=== PATIENT | male | born 1940 | race Two or more races ===

== ENCOUNTER 2018-09-12 08:11 | Outpatient (CLI) | payer MEDICARE, OTHER ==
--- NOTE | 2018-09-13 08:48 | Ultrasound Report ---
Reason: LIPOMAS,MULTIPLE Procedure Date: 09/12/2018 Accession Number: [id number] / [id number] Procedure: US - Abdomen Limited CPT Code: FULL RESULT: EXAM: ABDOMEN ULTRASOUND LIMITED, RUQ EXAM DATE: 09/12/2018 08:40 AM. CLINICAL HISTORY: Focal lump and swelling. COMPARISON: None. TECHNIQUE: Real-time scanning was performed with static images obtained. FINDINGS: Ultrasound imaging of the right lower quadrant region demonstrates three adjacent heterogeneous hypoechoic nodules in the subcutaneous fat likely corresponding to injection granulomas/fat necrosis measuring 1.4 cm, 1.6 cm, and 1.4 cm. Ultrasound imaging of the left lower quadrant region demonstrates a lobulated nodule isoechoic to surrounding fat measuring 3.7 cm, possible lipoma. Additional nodules demonstrating heterogeneous hypoechoic appearance in the subcutaneous fat corresponding to injection granulomas/fat necrosis are also seen measuring 1.3 cm, 1.6 cm, and 1.3 cm. IMPRESSION: 1. Multiple subcutaneous nodules seen in the lower abdominal quadrants consistent with injection granulomas/fat necrosis. 2. Single 3.7 cm nodule in the left lower quadrant region could represent small lipoma. [facility]
--- NOTE | 2018-09-13 10:34 | Ultrasound Report ---
Reason: ANEURYSYM OF INFRARENAL ABDOMINAL AORTA Procedure Date: 09/12/2018 Accession Number: [id number] / [id number] Procedure: US - Retroperitoneal Limited CPT Code: FULL RESULT: EXAM: AORTIC DOPPLER ULTRASOUND EXAM DATE: 09/12/2018 08:20 AM. CLINICAL HISTORY: Aneurysm of infrarenal abdominal aorta. COMPARISON: Abdomen/pelvis 06/04/2015. TECHNIQUE: Real-time sonographic imaging of retroperitoneal vascular structures, including color-flow, Doppler flow and spectral analysis was performed by the human resources file clerk. Multiple outside medical sales representative static images were saved for review. FINDINGS: Aorta: The abdominal aorta was adequately visualized. There is mild aneurysmal dilatation of the infrarenal/distal portion measuring up to 3.3 cm, similar to recent CT 06/04/2015. There is superimposed mild diffuse atherosclerotic plaque formation seen. Proximal aorta: 2.9 cm. Mid aorta: 2.4 x 2.6 cm. Distal aorta: 3.3 x 2.9 cm. Inferior Vena Cava: Normal. Iliac Vessels: The visualized proximal common iliac arteries are normal in caliber. Right: 1.5 x 1.4 cm. Left: 1.5 x 1.4 cm. Other: None. IMPRESSION: Stable mild infrarenal abdominal aortic aneurysm up to 3.3 cm similar, to 06/04/2015 CT. [facility]
== END 2018-09-12 08:12 | disposition home or self-care (01) ==
LOC: DI 08:11
PROVIDERS: ATTEND Physician Assistant
DX: I71.4 Abdominal aortic aneurysm, without rupture (principal); D17.5 Benign lipomatous neoplasm of intra-abdominal organs
CPT/HCPCS: 76705; 76775

== ENCOUNTER 2019-06-02 08:00 | Outpatient (CLI) | payer MEDICARE, OTHER ==
[2019-06-02 13:02] LABS: BASOPHILS # (AUTO) 0.1 10^3/uL (0.0-0.1); BASOPHILS % (AUTO) 1.3 %; EOSINOPHILS # (AUTO) 0.2 10^3/uL (0.0-0.7); EOSINOPHILS % (AUTO) 3.2 %; HGB - HEMOGLOBIN 13.9 g/dL (14.0-18.0); LYMPHOCYTES # (AUTO) 1.3 10^3/uL (1.5-3.5); LYMPHOCYTES % (AUTO) 18.3 %; MEAN CORPUSCULAR HEMOGLOBIN 31.1 pg (27.0-31.0); MEAN CORPUSCULAR HGB CONC 32.9 g/dL (32.0-36.0); MEAN CORPUSCULAR VOLUME 94.4 fL (80.0-94.0); MEAN PLATELET VOLUME 10.3 fL (7.4-11.4); MONOCYTES # (AUTO) 0.5 10^3/uL (0.0-1.0); MONOCYTES % (AUTO) 6.4 %; NEUTROPHILS % (AUTO) 70.4 %; PLT - PLATELET COUNT 335 10^3/uL (130-450); RED BLOOD COUNT 4.47 10^6/uL (4.70-6.10); RED CELL DISTRIBUTION WIDTH 13.3 % (12.0-15.0); WHITE BLOOD COUNT 7.2 x10^3/uL (4.8-10.8)
[2019-06-02 13:17] LABS: ALBUMIN 4.3 g/dL (3.2-5.5); ALBUMIN/GLOBULIN RATIO 1.4 (1.0-2.2); BILIRUBIN,TOTAL 0.7 mg/dL (0.2-1.0); CALCIUM 9.1 mg/dL (8.5-10.3); CREATININE 0.9 mg/dL (0.6-1.2); TOTAL PROTEIN 7.3 g/dL (6.7-8.2)
[2019-06-02 13:49] LABS: HEMOGLOBIN A1C 0.74 g/dL
== END 2019-06-02 23:59 | disposition home or self-care (01) ==
LOC: LAB.WCP 08:00
PROVIDERS: ATTEND Physician Assistant
DX: E11.51 Type 2 diabetes mellitus with diabetic peripheral angiopathy without gangrene (principal); I10 Essential (primary) hypertension
CPT/HCPCS: 36415; 80053; 83036; 85025

== ENCOUNTER 2020-01-13 08:00 | Outpatient (CLI) | payer MEDICARE, OTHER ==
[2020-01-13 11:56] LABS: BASOPHILS # (AUTO) 0.1 10^3/uL (0.0-0.1); BASOPHILS % (AUTO) 1.2 %; EOSINOPHILS # (AUTO) 0.3 10^3/uL (0.0-0.7); EOSINOPHILS % (AUTO) 5.2 %; HGB - HEMOGLOBIN 13.8 g/dL (14.0-18.0); LYMPHOCYTES # (AUTO) 1.1 10^3/uL (1.5-3.5); LYMPHOCYTES % (AUTO) 16.7 %; MEAN CORPUSCULAR HEMOGLOBIN 31.6 pg (27.0-31.0); MEAN CORPUSCULAR HGB CONC 32.9 g/dL (32.0-36.0); MEAN CORPUSCULAR VOLUME 96.1 fL (80.0-94.0); MEAN PLATELET VOLUME 10.5 fL (7.4-11.4); MONOCYTES # (AUTO) 0.5 10^3/uL (0.0-1.0); NEUTROPHILS # (AUTO) 4.5 10^3/uL (1.5-6.6); NEUTROPHILS % (AUTO) 68.6 %; PLT - PLATELET COUNT 328 10^3/uL (130-450); RED BLOOD COUNT 4.37 10^6/uL (4.70-6.10); RED CELL DISTRIBUTION WIDTH 13.2 % (12.0-15.0); WHITE BLOOD COUNT 6.6 x10^3/uL (4.8-10.8)
[2020-01-13 12:14] LABS: ALBUMIN 4.3 g/dL (3.2-5.5); ALBUMIN/GLOBULIN RATIO 1.3 (1.0-2.2); ALKALINE PHOSPHATASE 47 IU/L (42-121); ALT ALANINE AMINOTRANSFERASE 23 IU/L (10-60); AST ASPARTATE AMINOTRANSFERASE 21 IU/L (10-42); BILIRUBIN,TOTAL 0.9 mg/dL (0.2-1.0); BUN - BLOOD UREA NITROGEN 17 mg/dL (6-20); CALCIUM 8.5 mg/dL (8.5-10.3); CARBON DIOXIDE - CO2 27 mmol/L (21-32); CHLORIDE 104 mmol/L (101-111); CHOL/HDL RATIO 2.8 (<5.0); CHOLESTEROL 142 mg/dL; CREATININE 1.1 mg/dL (0.6-1.2); GLUCOSE 119 mg/dL (70-100); HDL CHOLESTEROL 50 mg/dL; LDL CHOLESTEROL,CALCULATED 65 mg/dL; LDL/HDL RATIO 1.3 (<3.6); SODIUM 135 mmol/L (135-145); TOTAL PROTEIN 7.5 g/dL (6.7-8.2); VLDL CHOLESTEROL 27 mg/dL
[2020-01-13 13:13] LABS: HB2 TOTAL 14.3 g/dL; HEMOGLOBIN A1C 0.73 g/dL; HEMOGLOBIN A1C % 6.8 % (4.6-6.2)
== END 2020-01-13 23:59 | disposition home or self-care (01) ==
LOC: LAB.WCP 08:00
PROVIDERS: ATTEND Physician Assistant
DX: E11.59 Type 2 diabetes mellitus with other circulatory complications (principal); E78.5 Hyperlipidemia, unspecified
CPT/HCPCS: 36415; 80053; 80061; 83036; 83721; 85025

== ENCOUNTER 2020-10-18 11:47 | Outpatient (CLI) | payer MEDICARE, OTHER ==
--- NOTE | 2020-10-18 12:52 | XRAY Report ---
PROCEDURE: Lumbar Spine 2 View INDICATIONS: LUMBAR BACK PAIN TECHNIQUE: 2 views of the lumbar spine were acquired. COMPARISON: CT abdomen and pelvis 06/04/2015 reviewed. FINDINGS: Bones: 5 [id number] vertebrae are present. There is normal bony alignment. No vertebral body compression fractures. No suspicious bony lesions. Mild to moderate degenerative disc disease is pr esent at L4-5 and L5-S1. This is most prominent at the lumbosacral junction where facet osteoarthriti s also is prominent. Soft tissues: Overlying bowel gas pattern is normal. Calcifications right upper quadrant represent g allstones, better seen by prior CT scanning. Follow-up ultrasound may be warranted. 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 Spinal and foraminal stenosis likely is present at each of these 2 le vels. Right upper quadrant gallbladder calcifications previously also documented by CT scanning. Reviewed by: Fercho Vizcaino MD on 10/18/2020 12:50 PM PST Approved by: Fercho Vizcaino MD on 10/18/2020 12:50 PM PST Station ID: [id number]
== END 2020-10-18 23:59 | disposition home or self-care (01) ==
LOC: DI.WCP 11:47
PROVIDERS: ATTEND Physician Assistant
DX: M47.817 Spondylosis without myelopathy or radiculopathy, lumbosacral region (principal); M51.37 Other intervertebral disc degeneration, lumbosacral region; M47.816 Spondylosis without myelopathy or radiculopathy, lumbar region; M51.36 Other intervertebral disc degeneration, lumbar region

== ENCOUNTER 2021-02-01 14:49 | Outpatient (CLI) | payer MEDICARE, OTHER | END 2021-02-01 14:50 | disposition home or self-care (01) | LOC: RT 14:49 | PROVIDERS: ATTEND Internal Medicine Cardiovascular Disease | DX: Z01.810 Encounter for preprocedural cardiovascular examination (principal) | CPT/HCPCS: 93005 ==

== ENCOUNTER 2023-03-23 11:22 | Outpatient (CLI) | payer MEDICARE, OTHER ==
--- NOTE | 2023-03-23 11:56 | Ultrasound Report ---
PROCEDURE: Retroperitoneal Limited INDICATIONS: ANEURYSM OF INFRARENAL ABDOMINAL AORTA TECHNIQUE: Real-time scanning was performed of the retroperitoneal organs, with image documentation. COMPARISON: None. FINDINGS: Proximal abdominal aorta measures 31 mm diameter. Mid abdominal area measures 30 mm diameter. Distal abdominal aorta measures 36 mm diameter. Right common iliac artery measures 14 mm diameter. Left common iliac artery measures 13 mm diameter. IMPRESSION: Infrarenal abdominal aortic aneurysm. Reviewed by: Darion Wolfe MD on 03/23/2023 11:54 AM PDT Approved by: Darion Wolfe MD on 03/23/2023 11:54 AM PDT Station ID: [id number]
== END 2023-03-23 11:23 | disposition home or self-care (01) ==
LOC: DI 11:22
PROVIDERS: ATTEND Physician Assistant
DX: I71.43 Infrarenal abdominal aortic aneurysm, without rupture (principal)

== ENCOUNTER 2023-05-15 09:59 | Outpatient (CLI) | payer MEDICARE, OTHER ==
[2023-05-15 10:08] LABS: BASOPHILS # (AUTO) 0.1 10^3/uL (0.0-0.1); BASOPHILS % (AUTO) 1.6 %; EOSINOPHILS # (AUTO) 0.2 10^3/uL (0.0-0.7); EOSINOPHILS % (AUTO) 2.9 %; HCT - HEMATOCRIT 47.6 % (42.0-52.0); HGB - HEMOGLOBIN 15.4 g/dL (14.0-18.0); MEAN CORPUSCULAR HEMOGLOBIN 28.6 pg (27.0-31.0); MEAN CORPUSCULAR HGB CONC 32.4 g/dL (32.0-36.0); MEAN CORPUSCULAR VOLUME 88.5 fL (80.0-94.0); MONOCYTES # (AUTO) 0.5 10^3/uL (0.0-1.0); MONOCYTES % (AUTO) 6.7 %; NEUTROPHILS # (AUTO) 5.8 10^3/uL (1.5-6.6); NEUTROPHILS % (AUTO) 75.5 %; PLT - PLATELET COUNT 655 10^3/uL (130-450); RED BLOOD COUNT 5.38 10^6/uL (4.70-6.10); RED CELL DISTRIBUTION WIDTH 16.2 % (12.0-15.0); WHITE BLOOD COUNT 7.6 x10^3/uL (4.8-10.8)
[2023-05-15 11:22] LABS: FERRITIN 98.2 ng/mL (23.9-336.2)
== END 2023-05-15 10:00 | disposition home or self-care (01) ==
LOC: LAB 09:59
PROVIDERS: ATTEND Physician Assistant
DX: D75.839 Thrombocytosis, unspecified (principal)
CPT/HCPCS: 36415; 82728; 83540; 84466; 85025

== ENCOUNTER 2023-09-05 09:59 | Outpatient (CLI) | payer MEDICARE, OTHER ==
[2023-09-05 10:24] LABS: BASOPHILS # (AUTO) 0.1 10^3/uL (0.0-0.1); BASOPHILS % (AUTO) 1.5 %; EOSINOPHILS # (AUTO) 0.2 10^3/uL (0.0-0.7); EOSINOPHILS % (AUTO) 3.9 %; HCT - HEMATOCRIT 49.6 % (42.0-52.0); HGB - HEMOGLOBIN 16.1 g/dL (14.0-18.0); LYMPHOCYTES % (AUTO) 16.3 %; MEAN CORPUSCULAR HEMOGLOBIN 29.3 pg (27.0-31.0); MEAN CORPUSCULAR HGB CONC 32.5 g/dL (32.0-36.0); MEAN CORPUSCULAR VOLUME 90.2 fL (80.0-94.0); MEAN PLATELET VOLUME 9.8 fL (7.4-11.4); MONOCYTES # (AUTO) 0.4 10^3/uL (0.0-1.0); MONOCYTES % (AUTO) 6.6 %; NEUTROPHILS # (AUTO) 4.2 10^3/uL (1.5-6.6); NEUTROPHILS % (AUTO) 71.4 %; PLT - PLATELET COUNT 603 10^3/uL (130-450); RED CELL DISTRIBUTION WIDTH 16.7 % (12.0-15.0); WHITE BLOOD COUNT 5.9 x10^3/uL (4.8-10.8)
[2023-09-05 10:33] LABS: CREATININE,URINE 56.1 mg/dL
[2023-09-05 10:37] LABS: MICROALBUMIN,URINE < 0.7 mg/dL
[2023-09-05 10:41] LABS: ALBUMIN 4.5 g/dL (3.2-5.5); ALBUMIN/GLOBULIN RATIO 1.5 (1.0-2.2); ALKALINE PHOSPHATASE 57 IU/L (42-121); ALT ALANINE AMINOTRANSFERASE 21 IU/L (10-60); AST ASPARTATE AMINOTRANSFERASE 18 IU/L (10-42); BILIRUBIN,TOTAL 0.6 mg/dL (0.2-1.0); BUN - BLOOD UREA NITROGEN 22 mg/dL (6-20); CALCIUM 10.2 mg/dL (8.5-10.3); CARBON DIOXIDE - CO2 32 mmol/L (21-32); CHLORIDE 101 mmol/L (101-111); CHOL/HDL RATIO 2.6 (<5.0); CHOLESTEROL 123 mg/dL; CREATININE 1.2 mg/dL (0.6-1.3); GFR - MDRD 58 (>89); GLUCOSE 107 mg/dL (74-104); HDL CHOLESTEROL 48 mg/dL; LDL CHOLESTEROL,CALCULATED 47 mg/dL; POTASSIUM 5.1 mmol/L (3.5-4.5); SODIUM 137 mmol/L (135-145); TOTAL PROTEIN 7.5 g/dL (6.4-8.9); TRIGLYCERIDES 140 mg/dL (48-352); VLDL CHOLESTEROL 28 mg/dL
[2023-09-05 11:09] LABS: ESTIMATED AVERAGE GLUCOSE 146 mg/dL (70-100); HEMOGLOBIN A1c% 6.7 % (4.27-6.07)
== END 2023-09-05 10:00 | disposition home or self-care (01) ==
LOC: LAB 09:59
PROVIDERS: ATTEND Physician Assistant
DX: E11.59 Type 2 diabetes mellitus with other circulatory complications (principal)
CPT/HCPCS: 36415; 80053; 80061; 82043; 82570; 83036; 83721; 85025